=== PATIENT | female | born 1970 | race Caucasian/White ===

== ENCOUNTER 2019-06-15 14:42 | Observation (INO) | payer OTHER ==
[2019-06-15] MEDS ORDERED: SODIUM CHLORIDE 0.9% 1,000 ML IV STA (15:19)
[2019-06-15] MEDS ORDERED: PANTOPRAZOLE 40 MG/10 ML VIAL IVP STA (15:19)
[2019-06-15] MEDS ORDERED: DICYCLOMINE 10 MG CAP PO STA (15:20)
--- NOTE | 2019-06-15 15:24 | ED ---
General Adult HPI - General Chief complaint: Recheck/Abnormal Lab/Rx Stated complaint: Chest pain Time Seen by Provider: 06/15/19 14:48 Source: patient Mode of arrival: ambulatory Limitations: no limitations - History of Present Illness Initial comments: Patient is a 48-year-old female presenting to emergency by with a chief complaint of abdominal pain. Patient reports she developed sudden onset of nausea or vomiting and epigastric and right upper quadrant abdominal pain about 2 days ago. Patient reports she was evaluated at [facility] with no acute findings. Patient was discharged with antiemetics and pain control. Patient reports she developed no changes over the last 2 days however the pain has persisted. Patient reports the pain is a 7 and cramping. Patient report she was placed on a clear liquid diet. Patient reports taking Zofran once for nausea which has since resolved. She reports also discovered a UTI and she is currently treated with antibiotics. Patient denies any urinary symptoms. Patient reports her last bowel movement was one day ago. Patient reports she is currently undergone menopause in her last menstrual period was about 3 weeks ago. - Related Data Previous Rx's Medication Instructions Recorded HYDROcodone/APAP 5-325MG [Atkinson 1 - 2 tab PO Q6HR PRN #30 tab 01/01/16 5-325] Levofloxacin [Levaquin] 500 mg PO DAILY #7 tab 01/01/16 metroNIDAZOLE [Flagyl] 500 mg PO TID #21 tab 01/01/16 Allergies Allergy/AdvReac Type Severity Reaction Status Date / Time Penicillins Allergy Unknown Verified 06/15/19 14:47 Childhood varenicline tartrate AdvReac NIGHTMARES Verified 06/15/19 14:47 [From Chantix] Review of Systems ROS Statement: Those systems with pertinent positive or pertinent negative responses have been documented in the HPI. ROS Other: All systems not noted in ROS Statement are negative. Past Medical History Past Medical History: No Reported History History of Any Multi-Drug Resistant Organisms: None Reported Past Surgical History: Section, Tubal Ligation, Uterine Ablation Additional Past Surgical History / Comment(s): knee left surgical Past Anesthesia/Blood Transfusion Reactions: No Reported Reaction Past Psychological History: No Psychological Hx Reported Smoking Status: Current some day smoker Past Alcohol Use History: Rare Past Drug Use History: None Reported - Past Family History Mother Family Medical History: Cancer, COPD, Diabetes Mellitus Additional Family Medical History / Comment(s): DMII, ovarian cancer Father Family Medical History: Deep Vein Thrombosis (DVT) General Exam Limitations: no limitations General appearance: alert, in no apparent distress Head exam: Present: atraumatic, normocephalic, normal inspection Eye exam: Present: normal appearance Pupils: Present: normal accommodation ENT exam: Present: normal exam, mucous membranes moist, normal external ear exam Neck exam: Present: normal inspection, full ROM Respiratory exam: Present: normal lung sounds bilaterally Cardiovascular Exam: Present: regular rate, normal rhythm, normal heart sounds GI/Abdominal exam: Present: soft, tenderness (Diffuse abdominal tenderness mostly localized to the epigastric and right upper quadrant.), normal bowel sounds. Absent: distended, guarding, rebound Extremities exam: Present: normal inspection, full ROM Back exam: Present: normal inspection, full ROM Neurological exam: Present: alert, oriented X3 Psychiatric exam: Present: normal affect, normal mood Skin exam: Present: warm, intact, normal color Course Vital Signs 06/15/19 14:43 Temperature 97.9 F Pulse Rate 88 Respiratory 16 Rate Blood Pressure 112/79 O2 Sat by Pulse 99 Oximetry EKG Findings - EKG Comments: EKG Findings:: Normal sinus rhythm, no ST elevation, no hyper peaked T waves. Ventricular rate 82, PA interval 170, QRS duration 90, QT/QTc 410/479 Medical Decision Making - Medical Decision Making Patient is a 48-year-old female presenting to emergency Department with a chief complaint of abdominal pain nausea vomiting. Laboratory results imaging and found report obtained from [facility]. Patient was initially hyperkalemic at the hospital however I suspect this to be due to a hemolyzed blood sample. Initial lab results obtained here patient appears to be hypokalemic at 2.6. Patient given 40 mg of care. Laboratory results obtained again. EKG is negative for flattening T waves. Patient also appears to have elevated bilirubin. In the hospital there were initially suspecting a gallbladder-related issue for her symptoms. However, ultrasound and CT were negative for any acute pathology at the time. Currently patient is stable. Patient given analgesia, fluids, antiemetics and will be admitted for further medical management. Case discussed with Dr. kahn who also examined the patient and is in agreement with the treatment plan. Accepting physician is Dr. love - Lab Data Result diagrams: 06/15/19 15:38 06/15/19 15:38 Lab Results 06/15/19 06/15/19 06/15/19 Range/Units 15:38 15:38 15:38 WBC 10.3 (3.8-10.6) k/uL RBC 3.86 (3.80-5.40) m/uL Hgb 14.2 (11.4-16.0) gm/dL Hct 42.5 (34.0-46.0) % MCV 110.2 H (80.0-100.0) fL MCH 36.8 H (25.0-35.0) pg MCHC 33.5 (31.0-37.0) g/dL RDW 14.3 (11.5-15.5) % Plt Count 46 L (150-450) k/uL Neutrophils % 88 % Lymphocytes % 6 % Monocytes % 3 % Eosinophils % 1 % Basophils % 0 % Neutrophils # 9.0 H (1.3-7.7) k/uL Lymphocytes # 0.7 L (1.0-4.8) k/uL Monocytes # 0.3 (0-1.0) k/uL Eosinophils # 0.1 (0-0.7) k/uL Basophils # 0.0 (0-0.2) k/uL Manual Slide Review Performed Macrocytosis Marked A Sodium 137 (137-145) mmol/L Potassium 2.6 L* (3.5-5.1) mmol/L Chloride 102 (98-107) mmol/L Carbon Dioxide 24 (22-30) mmol/L Anion Gap 11 mmol/L BUN 21 H (7-17) mg/dL Creatinine 1.06 H (0.52-1.04) mg/dL Est GFR (CKD-EPI)AfAm 71 (>60 ml/min/1.73 sqM) Est GFR (CKD-EPI)NonAf 62 (>60 ml/min/1.73 sqM) Glucose 102 H (74-99) mg/dL Calcium 8.5 (8.4-10.2) mg/dL Magnesium (1.6-2.3) mg/dL Total Bilirubin 4.3 H (0.2-1.3) mg/dL AST 169 H (14-36) U/L ALT 52 (9-52) U/L Alkaline Phosphatase 338 H (38-126) U/L CK-MB (CK-2) <0.2 (0.0-2.4) ng/mL Total Protein 5.6 L (6.3-8.2) g/dL Albumin 2.7 L (3.5-5.0) g/dL Amylase <30 L (30-110) U/L Lipase 23 (23-300) U/L 06/15/ Range/Units 15:38 WBC (3.8-10.6) k/uL RBC (3.80-5.40) m/uL Hgb (11.4-16.0) gm/dL Hct (34.0-46.0) % MCV (80.0-100.0) fL MCH (25.0-35.0) pg MCHC (31.0-37.0) g/dL RDW (11.5-15.5) % Plt Count (150-450) k/uL Neutrophils % % Lymphocytes % % Monocytes % % Eosinophils % % Basophils % % Neutrophils # (1.3-7.7) k/uL Lymphocytes # (1.0-4.8) k/uL Monocytes # (0-1.0) k/uL Eosinophils # (0-0.7) k/uL Basophils # (0-0.2) k/uL Manual Slide Review Macrocytosis Sodium (137-145) mmol/L Potassium (3.5-5.1) mmol/L Chloride (98-107) mmol/L Carbon Dioxide (22-30) mmol/L Anion Gap mmol/L BUN (7-17) mg/dL Creatinine (0.52-1.04) mg/dL Est GFR (CKD-EPI)AfAm (>60 ml/min/1.73 sqM) Est GFR (CKD-EPI)NonAf (>60 ml/min/1.73 sqM) Glucose (74-99) mg/dL Calcium (8.4-10.2) mg/dL Magnesium 2.0 (1.6-2.3) mg/dL Total Bilirubin (0.2-1.3) mg/dL AST (14-36) U/L ALT (9-52) U/L Alkaline Phosphatase (38-126) U/L CK-MB (CK-2) (0.0-2.4) ng/mL Total Protein (6.3-8.2) g/dL Albumin (3.5-5.0) g/dL Amylase (30-110) U/L Lipase (23-300) U/L Disposition Clinical Impression: Abdominal pain, Hyperbilirubinemia Disposition: ADMITTED IP TO THIS HOSP Condition: Stable Instructions (If sedation given, give patient instructions): Abdominal Pain (ED) Additional Instructions: Patient will be admitted Is patient prescribed a controlled substance at d/c from ED?: No Referrals: Sean Mota MD [Primary Care Provider] - 1-2 days Time of Disposition: 18:24
[2019-06-15 15:51] LABS: Basophils % (A) 0 %; Eosinophils # (A) 0.1 k/uL (0-0.7); Eosinophils % (A) 1 %; HCT 42.5 % (34.0-46.0); HGB 14.2 gm/dL (11.4-16.0); Lymphocytes # (A) 0.7 k/uL (1.0-4.8); Lymphocytes % (A) 6 %; MCH 36.8 pg (25.0-35.0); MCHC 33.5 g/dL (31.0-37.0); MCV 110.2 fL (80.0-100.0); Macrocytosis Marked; Mean Platelet Volume 9.7; Monocytes # (A) 0.3 k/uL (0-1.0); Monocytes % (A) 3 %; Neutrophils % (A) 88 %; RBC 3.86 m/uL (3.80-5.40); RDW 14.3 % (11.5-15.5); WBC 10.3 k/uL (3.8-10.6)
[2019-06-15] MEDS ORDERED: KETOROLAC 30 MG/ML 1 ML VIAL IVP STA (15:51)
[2019-06-15 16:12] LABS: ALT 52 U/L (9-52); AST 169 U/L (14-36); African American GFR (CKD) 71 (>60 ml/min/1.73 sqM); Albumin 2.7 g/dL (3.5-5.0); Alkaline Phosphatase 338 U/L (38-126); Amylase <30 U/L (30-110); Anion Gap 11 mmol/L; Blood Urea Nitrogen 21 mg/dL (7-17); Calcium 8.5 mg/dL (8.4-10.2); Carbon Dioxide 24 mmol/L (22-30); Chloride 102 mmol/L (98-107); Glucose 102 mg/dL (74-99); Non-African American GFR(CKD) 62 (>60 ml/min/1.73 sqM); Sodium 137 mmol/L (137-145); Total Bilirubin 4.3 mg/dL (0.2-1.3); Total Protein 5.6 g/dL (6.3-8.2)
[2019-06-15 16:15] LABS: Potassium 2.6 mmol/L (3.5-5.1)
[2019-06-15 16:21] LABS: Platelet Count 46 k/uL (150-450)
[2019-06-15] MEDS ORDERED: POTASSIUM CHLORIDE ER 20 MEQ TAB.ER PO STA (16:32)
--- NOTE | 2019-06-15 17:15 | XR ---
EXAMINATION TYPE: XR KUB DATE OF EXAM: 06/15/2019 COMPARISON: NONE HISTORY: Abdominal pain TECHNIQUE: 2 views upright FINDINGS: There is no sign of intestinal obstruction or pneumoperitoneum. Fecal pattern is normal. Th ere are phleboliths in the pelvis. There are no pathologic calcifications over the kidneys. Lung base s are clear. There is old right lateral healed rib fracture. IMPRESSION: Nonacute abdomen.
[2019-06-15] MEDS ORDERED: HYDROmorphone 0.5 MG/0.5 ML SYRINGE IVP STA (17:26)
[2019-06-15] MEDS ORDERED: MORPHINE SULFATE 4 MG/ML SYRINGE IV PRN (18:24)
[2019-06-15] MEDS ORDERED: NALOXONE 0.4 MG/ML 1 ML VIAL IV PRN (18:24)
[2019-06-15] MEDS ORDERED: KETOROLAC 30 MG/ML 1 ML VIAL IVP PRN (18:24)
[2019-06-15] MEDS ORDERED: IBUPROFEN 400 MG TAB PO PRN (18:24)
[2019-06-15] MEDS ORDERED: traMADol 50 MG TAB PO PRN (18:24)
[2019-06-15] MEDS ORDERED: ACETAMINOPHEN TAB 325 MG TAB PO PRN (18:24)
[2019-06-15 19:02] LABS: Bilirubin, Conjugated 1.8 mg/dL (0.0-0.3); Bilirubin, Delta 1.8 mg/dL (0.0-0.2); Bilirubin,Unconjugated 0.6 mg/dL (0.0-1.1); Total Bilirubin 4.2 mg/dL (0.2-1.3)
[2019-06-15 19:17] LABS: Potassium 2.7 mmol/L (3.5-5.1)
[2019-06-15 19:22] LABS: Appearance,Urine Cloudy (Clear); Bacteria,Urine Occasional /hpf; Bilirubin,Urine 1+ (Negative); Blood,Urine Small (Negative); Color,Urine Dark Brown; Glucose,Urine (UA) Negative (Negative); Ketones,Urine Negative (Negative); Leukocyte Esterase,Urine Moderate (Negative); Nitrite,Urine Negative (Negative); PH, Urine 5.5 (5.0-8.0); Protein,Urine 1+ (Negative); RBC,Urine 14 /hpf (0-5); Specific Gravity,Urine 1.015 (1.001-1.035); Squamous Epithelial Cell,Urine 4 /hpf (0-4); WBC,Urine 57 /hpf (0-5)
[2019-06-15] MEDS: SODIUM CHLORIDE 0.9% 1,000 ML IV SCH (20:02)
[2019-06-15] MEDS: FAMOTIDINE 20 MG TAB PO SCH (21:38)
[2019-06-15] MEDS: HYDROmorphone 0.5 MG/0.5 ML SYRINGE IVP PRN (21:38)
[2019-06-15] MEDS: ALPRAZolam 0.25 MG TAB PO PRN (23:13)
[2019-06-16] MEDS: HYDROmorphone 0.5 MG/0.5 ML SYRINGE IVP PRN ×7 (00:38→21:58)
[2019-06-16] MEDS: SODIUM CHLORIDE 0.9% 1,000 ML IV SCH ×2 (04:26→15:40)
[2019-06-16] MEDS: FAMOTIDINE 20 MG TAB PO SCH ×2 (08:44→21:58)
[2019-06-16 09:29] LABS: Basophils % (A) 0 %; Eosinophils # (A) 0.1 k/uL (0-0.7); Eosinophils % (A) 1 %; HCT 38.6 % (34.0-46.0); HGB 12.6 gm/dL (11.4-16.0); Lymphocytes # (A) 0.7 k/uL (1.0-4.8); Lymphocytes % (A) 8 %; MCH 36.9 pg (25.0-35.0); MCHC 32.6 g/dL (31.0-37.0); MCV 113.1 fL (80.0-100.0); Macrocytosis Marked; Mean Platelet Volume 9.8; Monocytes # (A) 0.2 k/uL (0-1.0); Monocytes % (A) 3 %; Neutrophils # (A) 7.2 k/uL (1.3-7.7); Neutrophils % (A) 85 %; RBC 3.41 m/uL (3.80-5.40); RDW 14.2 % (11.5-15.5); WBC 8.5 k/uL (3.8-10.6)
[2019-06-16 09:43] LABS: Platelet Count 30 k/uL (150-450)
[2019-06-16 09:44] LABS: Albumin 2.4 g/dL (3.5-5.0); Calcium 7.5 mg/dL (8.4-10.2); Potassium 2.8 mmol/L (3.5-5.1); Total Bilirubin 4.3 mg/dL (0.2-1.3)
[2019-06-16] MEDS ORDERED: POTASSIUM CHLORIDE ER 20 MEQ TAB.ER PO STA (14:09)
[2019-06-16] MEDS: 0.9% NACL WITH KCL 20 MEQ/L 1,000 ML IV SCH (15:38)
[2019-06-16] MEDS: CEFEPIME 2 GM in SODIUM CHLORIDE 0.9% 100 ML IVPB SCH ×2 (15:43→21:59)
[2019-06-16] MEDS ORDERED: POTASSIUM CHLORIDE ER 20 MEQ TAB.ER PO ONE (17:00)
--- NOTE | 2019-06-16 21:45 | P.HPIM ---
History of Present Illness H&P Date: 06/16/19 Chief Complaint: Upper abdominal pain History of presenting complaint: This is a pleasant 48-year-old patient of Dr. Mota. Patient initially presented to [facility] where she is having abdominal pain in the upper abdomen for about a week. Sharp in nature it is worse with food. Goes around and goes the back. No fever no chills. She initially presented [facility] 2 days ago and was was sent home. She presented to them with worsening pain. And at some elevation in LFTs was sent down here. Patient had some relief with Tums. Has been up in the hallway here in the hospital. General surgery was consulted this morning. Patient has CDs from the hospital for ultrasound. No fever no chills. Review of systems: GEN.: None EYES: None HEENT: None NECK: None RESPIRATORY: Occasional cough CARDIOVASCULAR: None GASTROINTESTINAL: As above GENITOURINARY: None MUSCULOSKELETAL: None LYMPHATICS: None HEMATOLOGICAL: None PSYCHIATRY: None NEUROLOGICAL: None Social history: . Works as a asphalt roller person. Smoking half a pack a day for over 30 years. A lcohol occasionally. Physical examination: VITAL SIGNS: 97.9, 85, 18, 109/73, 94% room air GENERAL: 25.4, sitting up comfortable. EYES: Pupils equal. Conjunctiva normal. HEENT: External appearance of nose and ears normal, oral cavity grossly normal. NECK: JVD not raised; masses not palpable. HEART: First and second heart sounds are normal; no edema. LUNGS: Respiratory rate normal; decreased breath sounds. ABDOMEN: Soft, upper abdominal tenderness both in the epigastric and the right upper quadrant area,, liver spleen not palpable, no masses palpable. PSYCH: Alert and oriented x3; mood and affect normal. NEUROLOGICAL: Cranial nerves grossly intact; no facial asymmetry, power and sensation grossly intact. LYMPHATICS: No lymph nodes palpable in the axilla and neck INVESTIGATIONS, reviewed in the clinical context: White count 10.3 hemoglobin 14.2 potassium 2.6. 21 crit 1.06 total bilirubin 4.3 AST 169 ALT 52 alkaline phosphatase 338 Assessment: -This is a patient has 1 week of increasing upper abdominal pain with some nausea. No fever no chills. Patient has some elevation of LFTs some alkaline phosphatase and bilirubin. Patient may have underlying symptomatic gallstones. There is no obvious evidence of any fever or white count. But empirically will start the patient on antibiotics. Associated peptic ulcer disease needs to be considered -Chronic nicotine dependence patient cigarette smoker -Hyperbilirubinemia -Severe hypokalemia -Clinical dehydration with elevated BUN/creatinine improving with IV hydration Plan: Patient started and IV fluids and potassium was being replaced. General surgery was consulted. Patient has ultrasound does struggle the hospital. Lovenox for DVT prophylaxis. Pain control IV Dilaudid ordered. Care was discussed with the patient. Questions were answered. Past Medical History Past Medical History: No Reported History History of Any Multi-Drug Resistant Organisms: None Reported Past Surgical History: Appendectomy, Section, Tubal Ligation, Uterine Ablation Additional Past Surgical History / Comment(s): knee left surgical Past Anesthesia/Blood Transfusion Reactions: No Reported Reaction Past Psychological History: No Psychological Hx Reported Additional Psychological History / Comment(s): . Tobacco smoker. 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 No animal exposures Smoking Status: Current some day smoker Past Alcohol Use History: Rare Past Drug Use History: None Reported - Past Family History Mother Family Medical History: Cancer, COPD, Diabetes Mellitus Additional Family Medical History / Comment(s): DMII, ovarian cancer Father Family Medical History: Deep Vein Thrombosis (DVT) Medications and Allergies Home Medications Medication Instructions Recorded Confirmed Type Naproxen [Naprosyn] 500 mg PO Q12HR PRN 06/15/19 06/15/19 History Nitrofurantoin Monohyd/M-Cryst 100 mg PO Q12HR 06/15/19 06/15/19 History [Macrobid] Ondansetron Odt [Zofran Odt] 4 mg PO TID PRN 06/15/19 06/15/19 History Allergies Allergy/AdvReac Type Severity Reaction Status Date / Time Penicillins Allergy Unknown Verified 06/15/19 18:36 Childhood varenicline tartrate AdvReac NIGHTMARES Verified 06/15/19 18:36 [From Chantix] Physical Exam Vitals: Vital Signs Temp Pulse Pulse Resp BP BP Pulse Ox 06/16/19 05:46 97.7 F 85 18 109/73 94 L 06/15/19 22:48 97.5 F L 86 18 106/69 99 06/15/19 20:23 97.8 F 84 15 115/86 98 06/15/19 18:57 97.6 F 82 18 113/83 98 06/15/19 14:43 97.9 F 88 16 112/79 99 Intake and Output 06/15/19 06/16/19 06/16/19 22:59 06:59 14:59 Intake Total 450 240 Balance 450 240 Intake: Oral 450 240 Other: Voiding Method Toilet Toilet # Voids 2 Results CBC & Chem 7: 06/16/19 08:40 06/16/19 08:40 Labs: Abnormal Lab Results - Last 24 Hours (Table) 06/15/19 06/15/19 06/15/19 Range/Units 15:38 15:38 18:15 RBC (3.80-5.40) m/uL MCV 110.2 H (80.0-100.0) fL MCH 36.8 H (25.0-35.0) pg Plt Count 46 L (150-450) k/uL Neutrophils # 9.0 H (1.3-7.7) k/uL Lymphocytes # 0.7 L (1.0-4.8) k/uL Macrocytosis Marked A Potassium 2.6 L* 2.7 L* (3.5-5.1) mmol/L BUN 21 H (7-17) mg/dL Creatinine 1.06 H (0.52-1.04) mg/dL Glucose 102 H (74-99) mg/dL Calcium (8.4-10.2) mg/dL Total Bilirubin 4.3 H 4.2 H (0.2-1.3) mg/dL Conjugated Bilirubin 1.8 H (0.0-0.3) mg/dL Delta Bilirubin 1.8 H (0.0-0.2) mg/dL AST 169 H (14-36) U/L Alkaline Phosphatase 338 H (38-126) U/L Total Protein 5.6 L (6.3-8.2) g/dL Albumin 2.7 L (3.5-5.0) g/dL Amylase <30 L (30-110) U/L Urine Appearance (Clear) Urine Protein (Negative) Urine Blood (Negative) Urine Bilirubin (Negative) Ur Leukocyte Esterase (Negative) Urine RBC (0-5) /hpf Urine WBC (0-5) /hpf Urine Bacteria (None) /hpf 06/15/19 06/16/19 06/16/19 Range/Units 19:00 08:40 08:40 RBC 3.41 L (3.80-5.40) m/uL MCV 113.1 H (80.0-100.0) fL MCH 36.9 H (25.0-35.0) pg Plt Count 30 L (150-450) k/uL Neutrophils # (1.3-7.7) k/uL Lymphocytes # 0.7 L (1.0-4.8) k/uL Macrocytosis Marked A Potassium 2.8 L (3.5-5.1) mmol/L BUN (7-17) mg/dL Creatinine (0.52-1.04) mg/dL Glucose (74-99) mg/dL Calcium 7.5 L (8.4-10.2) mg/dL Total Bilirubin 4.3 H (0.2-1.3) mg/dL Conjugated Bilirubin (0.0-0.3) mg/dL Delta Bilirubin (0.0-0.2) mg/dL AST 144 H (14-36) U/L Alkaline Phosphatase 330 H (38-126) U/L Total Protein 5.0 L (6.3-8.2) g/dL Albumin 2.4 L (3.5-5.0) g/dL Amylase (30-110) U/L Urine Appearance Cloudy H (Clear) Urine Protein 1+ H (Negative) Urine Blood Small H (Negative) Urine Bilirubin 1+ H (Negative) Ur Leukocyte Esterase Moderate H (Negative) Urine RBC 14 H (0-5) /hpf Urine WBC 57 H (0-5) /hpf Urine Bacteria Occasional H (None) /hpf Thrombosis Risk Factor Assmnt - Choose All That Apply Any of the Below Risk Factors Present?: Yes Each Factor Represents 1 point: Age 41-60 years Thrombosis Risk Factor Assessment Total Risk Factor Score: 1 Thrombosis Risk Factor Assessment Level: Low Risk
[2019-06-16] MEDS: ALPRAZolam 0.25 MG TAB PO PRN (21:58)
[2019-06-16] MEDS: NICOTINE 14MG/24HR PATCH TRANSDERM SCH (21:59)
[2019-06-16] MEDS ORDERED: ENOXAPARIN 40 MG/0.4 ML SYRINGE SQ SCH (22:00)
[2019-06-17] MEDS: 0.9% NACL WITH KCL 20 MEQ/L 1,000 ML IV SCH ×3 (00:12→19:50)
[2019-06-17] MEDS: HYDROmorphone 0.5 MG/0.5 ML SYRINGE IVP PRN ×4 (03:40→23:54)
[2019-06-17] MEDS: FAMOTIDINE 20 MG TAB PO SCH ×2 (08:05→19:50)
[2019-06-17] MEDS: CEFEPIME 2 GM in SODIUM CHLORIDE 0.9% 100 ML IVPB SCH ×2 (08:05→19:50)
--- NOTE | 2019-06-17 09:34 | US ---
EXAMINATION TYPE: US abdomen limited DATE OF EXAM: 06/17/2019 COMPARISON: CT 12/30/2015 and 06/13/2019 from outside institution CLINICAL HISTORY: Gallbladder. abd pain EXAM MEASUREMENTS: Liver Length: 23.1 cm Gallbladder Wall: 0.2 cm CBD: 0.5 cm Right Kidney: 11.9 x 5.9 x 4.9 cm Pancreas: portion seen appears wnl Liver: grossly enlarged, echogenicity of liver presents as hypoechoic within left lobe and medial ri ght, while remaining right portion has more normal appearing echogenicity Gallbladder: wnl Evidence for sonographic Gimenez's sign: no CBD: wnl Right Kidney: wnl incidental right pleural effusion seen IMPRESSION: Limited abdomen ultrasound. Right pleural effusion is small and incidental. Hepatomegaly. There may be underlying hepatocellular disease, hepatic steatosis, hypoechoic abnormality seen withi n the liver left lobe is indeterminate.
[2019-06-17 11:27] LABS: ALT 58 U/L (9-52); AST 142 U/L (14-36); African American GFR (CKD) >90 (>60 ml/min/1.73 sqM); Albumin 2.6 g/dL (3.5-5.0); Alkaline Phosphatase 403 U/L (38-126); Anion Gap 9 mmol/L; Blood Urea Nitrogen 15 mg/dL (7-17); Calcium 7.7 mg/dL (8.4-10.2); Carbon Dioxide 21 mmol/L (22-30); Chloride 109 mmol/L (98-107); Glucose 77 mg/dL (74-99); Non-African American GFR(CKD) 88 (>60 ml/min/1.73 sqM); Sodium 139 mmol/L (137-145); Total Bilirubin 5.3 mg/dL (0.2-1.3); Total Protein 5.7 g/dL (6.3-8.2)
--- NOTE | 2019-06-17 15:41 | P.GSCN ---
History of Present Illness Consult date: 06/17/19 Reason for Consult: abdominal pain Requesting physician: Bernabe Diallo History of present illness: CHIEF COMPLAINT: Abdominal pain HISTORY OF PRESENT ILLNESS: 48 year old female who presented to the ER with a chief complaint of abdominal pain. Patient reports she began having abdominal pain about a week ago that has increased in severity. She reports the pain is in the epigastric region and right upper quadrant. The pain radiates to her back also. She states she has been having pain like this on and off for about a year, but this is the worst it has been. She also complains of heartburn for about a year. She reports intolerable to fatty or greasy foods as it tends to cause her abdominal discomfort. She denies nausea or vomiting. Denies diarrhea or constipation. Patient denies previous EGD. She reports drinking hard liquor 2-3 times a week and having around 3 drinks on each occasion. PAST MEDICAL HISTORY: See list. PAST SURGICAL HISTORY: See list. SOCIAL HISTORY: No illicit drug use. ETOH use 2-3x/week. REVIEW OF SYSTEMS: CONSTITUTIONAL: Denies fever or chills. HEENT: Denies blurred vision, vision changes, or eye pain. Denies hemoptysis CARDIOVASCULAR: Denies chest pain or pressure. RESPIRATORY: No shortness of breath. GASTROINTESTINAL: Refer to HPI for pertinent findings HEMATOLOGIC: Denies bleeding disorders. GENITOURINARY: Denies any blood in urine. SKIN: Denies pruitis. Denies rash. PHYSICAL EXAM: VITAL SIGNS: Reviewed. GENERAL: Well-developed in no acute distress. HEENT: No sclera icterus. Extraocular movements grossly intact. Moist buccal mucosa. Head is atraumatic, normocephalic. ABDOMEN: Soft. Nondistended. Tenderness with palpation to epigastric region and right upper quadrant. NEUROLOGIC: Alert and oriented. Cranial nerves II through XII grossly intact. LABORATORY DATA: Most recent laboratory data reveals white count 8.5. Hemoglobin 12.6. Platelet count 30. Total bilirubin 5.3. AST 142. ALT 58. Alkaline phosphatase 403. IMAGIN. CT abdomen and pelvis completed outside facility reveals hepatomegaly. Geographic heterogeneity to the hepatic parenchyma consistent with hepatic steatosis. Spleen is mildly prominent. No evidence of gastroesophageal varices. Bowel loops are normal in course and caliber. Appendix is absent by surgical history. 2. Abdominal ultrasound: Hepatomegaly. There may be underlying hepatocellular disease, hepatic stenosis. Hypoechoic abnormality seen within the left liver lobe is indeterminate. Gallbladder appears within normal limits., Bile duct measuring 0.5 cm. Gallbladder wall 0.2 cm. ASSESSMENT: 1. Abdominal pain 2. Hepatomegaly 3. Hyperbilirubinemia 4. Transaminitis 5. Thrombocytopenia 6. Alcohol use 3x/weekly PLAN: 1. Abdominal US without gallbladder abnormalities. However patient does have clinical symptoms of gallbladder dyskinesia over the past year. Will obtain HIDA scan. 2. Consult GI for further evaluation of abnormal LFTs. Can not exclude passage of gallstones. Can not exclude abnormalities are secondary to ETOH use. Hepatitis panel has been ordered. 3. Discontinue Lovenox as platelet count is 30,000 this AM. Patient is ambulating independently. Nurse practitioner note has been reviewed by physician. Signing provider agrees with the documented findings, assessment, and plan of care. Past Medical History Past Medical History: No Reported History History of Any Multi-Drug Resistant Organisms: None Reported Past Surgical History: Appendectomy, Section, Tubal Ligation, Uterine Ablation Additional Past Surgical History / Comment(s): knee left surgical Past Anesthesia/Blood Transfusion Reactions: No Reported Reaction Past Psychological History: No Psychological Hx Reported Additional Psychological History / Comment(s): . Tobacco smoker. 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 No animal exposures Smoking Status: Current some day smoker Past Alcohol Use History: Rare Past Drug Use History: None Reported - Past Family History Mother Family Medical History: Cancer, COPD, Diabetes Mellitus Additional Family Medical History / Comment(s): DMII, ovarian cancer Father Family Medical History: Deep Vein Thrombosis (DVT) Medications and Allergies Home Medications Medication Instructions Recorded Confirmed Type Naproxen [Naprosyn] 500 mg PO Q12HR PRN 06/15/19 06/15/19 History Nitrofurantoin Monohyd/M-Cryst 100 mg PO Q12HR 06/15/19 06/15/19 History [Macrobid] Ondansetron Odt [Zofran Odt] 4 mg PO TID PRN 06/15/19 06/15/19 History Allergies Allergy/AdvReac Type Severity Reaction Status Date / Time Penicillins Allergy Unknown Verified 06/15/19 18:36 Childhood varenicline tartrate AdvReac NIGHTMARES Verified 06/15/19 18:36 [From Chantix] Surgical - Exam Vital Signs Temp Pulse Resp BP Pulse Ox 97.9 F 88 16 112/79 99 06/15/19 14:43 06/15/19 14:43 06/15/19 14:43 06/15/19 14:43 06/15/19 14:43 Results - Labs 06/16/19 08:40 06/17/19 10:37 Abnormal Lab Results - Last 24 Hours (Table) 06/17/19 Range/Units 10:37 Chloride 109 H (98-107) mmol/L Carbon Dioxide 21 L (22-30) mmol/L Calcium 7.7 L (8.4-10.2) mg/dL Total Bilirubin 5.3 H (0.2-1.3) mg/dL AST 142 H (14-36) U/L ALT 58 H (9-52) U/L Alkaline Phosphatase 403 H (38-126) U/L Total Protein 5.7 L (6.3-8.2) g/dL Albumin 2.6 L (3.5-5.0) g/dL Diabetes panel 06/16/19 06/17/19 Range/Units 23:17 10:37 Sodium 139 (137-145) mmol/L Potassium 3.7 4.0 (3.5-5.1) mmol/L Chloride 109 H (98-107) mmol/L Carbon Dioxide 21 L (22-30) mmol/L BUN 15 (7-17) mg/dL Creatinine 0.79 (0.52-1.04) mg/dL Glucose 77 (74-99) mg/dL Calcium 7.7 L (8.4-10.2) mg/dL AST 142 H (14-36) U/L ALT 58 H (9-52) U/L Alkaline Phosphatase 403 H (38-126) U/L Total Protein 5.7 L (6.3-8.2) g/dL Albumin 2.6 L (3.5-5.0) g/dL Calcium panel 06/17/19 Range/Units 10:37 Calcium 7.7 L (8.4-10.2) mg/dL Albumin 2.6 L (3.5-5.0) g/dL Pituitary panel 06/16/19 06/17/19 Range/Units 23:17 10:37 Sodium 139 (137-145) mmol/L Potassium 3.7 4.0 (3.5-5.1) mmol/L Chloride 109 H (98-107) mmol/L Carbon Dioxide 21 L (22-30) mmol/L BUN 15 (7-17) mg/dL Creatinine 0.79 (0.52-1.04) mg/dL Glucose 77 (74-99) mg/dL Calcium 7.7 L (8.4-10.2) mg/dL Adrenal panel 06/16/19 06/17/19 Range/Units 23:17 10:37 Sodium 139 (137-145) mmol/L Potassium 3.7 4.0 (3.5-5.1) mmol/L Chloride 109 H (98-107) mmol/L Carbon Dioxide 21 L (22-30) mmol/L BUN 15 (7-17) mg/dL Creatinine 0.79 (0.52-1.04) mg/dL Glucose 77 (74-99) mg/dL Calcium 7.7 L (8.4-10.2) mg/dL Total Bilirubin 5.3 H (0.2-1.3) mg/dL AST 142 H (14-36) U/L ALT 58 H (9-52) U/L Alkaline Phosphatase 403 H (38-126) U/L Total Protein 5.7 L (6.3-8.2) g/dL Albumin 2.6 L (3.5-5.0) g/dL
--- NOTE | 2019-06-17 16:21 | NM ---
EXAMINATION TYPE: NM hepatobiliary wo EF DATE OF EXAM: 06/17/2019 COMPARISON: Ultrasound abdomen same date HISTORY: Abdominal pain TECHNIQUE: After the intravenous administration of 4.82 mCi Tc 99m Mebrofenin hepatobiliary scintigra phy is performed. Immediate images post injection. FINDINGS: The liver is enlarged. Small bowel activity is detected at 10 to 15 minutes. Gallbladder activity is detected on delayed images at 3 hours. IMPRESSION: Findings could be due to chronic cholecystitis. Hepatomegaly.
[2019-06-17] MEDS: ALPRAZolam 0.25 MG TAB PO PRN (16:50)
[2019-06-17 18:03] LABS: Hepatitis A Antibody IgM Non-Reactive (Non-Reactive); Hepatitis B Core IgM Non-Reactive (Non-Reactive); Hepatitis B Surface Antigen Non-Reactive (Non-Reactive); Hepatitis C IgG Antibody Non-Reactive (Non-Reactive)
[2019-06-17] MEDS: NICOTINE 14MG/24HR PATCH TRANSDERM SCH (19:57)
[2019-06-17] MEDS ORDERED: LIDOCAINE 1% 20 ML VIAL (10MG/ML) FOR IV START INTRADERMA PRN (20:37)
[2019-06-17] MEDS ORDERED: DEXAMETHASONE SOD PHOSPHATE 10 MG/ML 1 ML VIAL IV ONE (20:37)
[2019-06-17] MEDS ORDERED: ONDANSETRON 4 MG/2 ML VIAL IVP ONE (20:37)
[2019-06-17] MEDS ORDERED: IOPAMIDOL CONTRAST (ORAL USE) VIAL PO PRN (23:43)
--- NOTE | 2019-06-17 23:43 | P.PN ---
Progress Note - Text Progress Note Date: 06/17/19 Chief Complaint: Upper abdominal pain History of presenting complaint: This is a pleasant 48-year-old patient of Dr. Mota. [facility] having abdominal pain in the upper abdomen for about a week. Sharp in nature it is worse with food. Goes around and goes the back. No fever no chills. She initially presented [facility] 2 days ago and was was sent home. She presented to them with worsening pain. And at some elevation in LFTs was sent down here. Patient had some relief with Tums. Has been up in the hallway here in the hospital. General surgery was consulted this morning. Patient has CDs from the hospital for ultrasound. No fever no chills. Admitted for suspected choledocholithiasis/chronic cholecystitis Today-sitting up on the bed. Surgery ordered HIDA scan. Remains to be tender in the upper abdomen. No Nausea or vomiting. No fever no chills. Review of systems: Was done for constitutional, cardiovascular, GI, pulmonary. relevant finding as above Active Medications Acetaminophen (Tylenol Tab) 650 mg PO Q6HR PRN PRN Reason: Mild Pain or Fever > 100.5 Alprazolam (Xanax) 0.25 mg PO Q6HR PRN PRN Reason: Anxiety Last Admin: 06/17/19 16:50 Dose: 0.25 mg Documented by: Famotidine (Pepcid) 20 mg PO BID HERNAN Last Admin: 06/17/19 19:50 Dose: 20 mg Documented by: Hydromorphone HCl (Dilaudid) 0.5 mg IVP Q3HR PRN PRN Reason: Moderate Pain Last Admin: 06/17/19 18:30 Dose: 0.5 mg Documented by: Cefepime HCl 2 gm/ Sodium (Chloride) 100 mls @ 200 mls/hr IVPB Q12HR HERNAN Last Admin: 06/17/19 19:50 Dose: 200 mls/hr Documented by: Potassium Chloride/Sodium Chloride (Ns-Kcl 20 Meq/L Iv Solution) 1,000 mls @ 100 mls/hr IV .Q10H HERNAN Last Admin: 06/17/19 19:50 Dose: 100 mls/hr Documented by: Lactated Ringer's (Lactated Ringers) 1,000 mls @ 20 mls/hr IV .Q24H HERNAN Ibuprofen (Motrin) 400 mg PO Q6HR PRN PRN Reason: Mild Pain or Fever > 100.5 Ketorolac Tromethamine (Toradol) 30 mg IVP Q6HR PRN PRN Reason: Moderate Pain Stop: 06/20/19 18:25 Lidocaine HCl (.Xylocaine 1% Inj (10mg/Ml) For Iv Start) 0.1 ml INTRADERMA PER PROTOCOL PRN PRN Reason: IV Start Morphine Sulfate (Morphine Sulfate (Inj)) 4 mg IV Q4HR PRN PRN Reason: Severe Pain Naloxone HCl (Narcan) 0.2 mg IV Q2M PRN PRN Reason: Opioid Reversal Nicotine (Habitrol 14mg/24hr Patch) 1 patch TRANSDERM DAILY@2100 HERNAN Last Admin: 06/17/19 19:57 Dose: Not Given Documented by: Tramadol HCl (Ultram) 50 mg PO Q6H PRN PRN Reason: Moderate Pain Physical examination: VITAL SIGNS: 98.1, 75, 20, 137/92, 95% room air GENERAL: Sitting up in bed, not in distress. EYES: Pupils equal. Conjunctiva normal. HEENT: External appearance of nose and ears normal, oral cavity grossly normal. NECK: JVD not raised; masses not palpable. HEART: First and second heart sounds are normal; no edema. LUNGS: Respiratory rate normal; decreased breath sounds. ABDOMEN: Soft, upper abdominal tenderness both in the epigastric and the right upper quadrant area,, liver spleen not palpable, no masses palpable. PSYCH: Alert and oriented x3; mood and affect normal. INVESTIGATIONS, reviewed in the clinical context: Potassium 4 creatinine 0.79 total bilirubin 5.3 AST 142 ALT 58 alkaline phosphatase 403 Abdominal ultrasound-liver grossly enlarged, gallbladder within normal limits Previous testing White count 10.3 hemoglobin 14.2 potassium 2.6. 21 crit 1.06 total bilirubin 4.3 AST 169 ALT 52 alkaline phosphatase 338 Assessment: -This is a patient has 1 week of increasing upper abdominal pain with some nausea. No fever no chills. Patient has some elevation of LFTs some alkaline phosphatase and bilirubin. No gallstones reportable. There is no obvious evidence of any fever or white count. But empirically will start the patient on antibiotics. Associated peptic ulcer disease needs to be considered -Chronic nicotine dependence patient cigarette smoker -Hyperbilirubinemia -Severe hypokalemia, corrected -Clinical dehydration with elevated BUN/creatinine improving with IV hydration Plan: We will do a chest x-ray. We'll also do a computed tomography scan of the chest abdomen and pelvis, given the reported pleural effusion on the ultrasound.
[2019-06-18] MEDS: ALPRAZolam 0.25 MG TAB PO PRN ×2 (02:48→20:03)
[2019-06-18] MEDS: HYDROmorphone 0.5 MG/0.5 ML SYRINGE IVP PRN ×3 (05:14→20:03)
[2019-06-18] MEDS: 0.9% NACL WITH KCL 20 MEQ/L 1,000 ML IV SCH ×2 (05:16→16:16)
[2019-06-18] MEDS: FAMOTIDINE 20 MG TAB PO SCH ×2 (06:46→20:04)
[2019-06-18] MEDS: LACTATED RINGERS 1,000 ML IV SCH ×2 (07:20→23:16)
--- NOTE | 2019-06-18 07:20 | P.CONS ---
History of Present Illness - Reason for Consult Consult date: 06/17/19 Elevated liver enzymes Requesting physician: Bernabe Diallo - Chief Complaint Abdominal pain - History of Present Illness 48-year-old female who was transferred to [facility] due to abdominal pain and elevated liver enzymes. The patient initially presented to outside hospital with complaints of abdominal pain. She reports that the abdominal pain is improved and over the past few months but has been worse over the past week. She reports the pain is in the epigastric region and worse in the right upper quadrant of her abdomen. Pain is described as sharp and constant in nature. She believes that food makes the pain worse. The patient had evaluation significant for elevated liver enzymes with imaging including CT of the abdomen significant for hepatomegaly, steatosis, a prominent spleen and prior appendectomy and ultrasound significant for hepatomegaly, steatosis with normal-appearing bile duct and gallbladder at the outside facility before transfer. On questioning the patient currently reports drinking alcohol only 2- 3 times per week but when pressed further she does report that she previously had significant alcohol use but is vague about the duration and amount that she was consuming at that time. Laboratory evaluation on presentation significant for total bilirubin 5.3, alkaline phosphatase 403, AST 142 and ALTs 58 with negative viral hepatitis testing, WBC 8.5, hemoglobin 12.4 and platelet count of 30,000. Review of Systems REVIEW OF SYSTEMS: CONSTITUTIONAL: Denies any fevers, chills, weight change or fatigue. CARDIOVASCULAR: Denies any chest pain, palpitations high or low blood pressures RESPIRATORY: Denies any shortness of breath, hemoptysis or cough. GENITOURINARY: No dysuria or hematuria. MUSCULOSKELETAL: No weakness reported. SKIN: Denies any new rashes or lesions, jaundice or pallor. PSYCHIATRIC: Denies any depression or anxiety. NEUROLOGY: Denies headache, denies any new focal deficits. EARS/NOSE/THROAT: No recent hearing change, congestion, nasal discharge or sore throat. EYES: No pain in eyes, discharge or change in vision. GASTROINTESTINAL: As per HPI. Past Medical History Past Medical History: No Reported History History of Any Multi-Drug Resistant Organisms: None Reported Past Surgical History: Appendectomy, Section, Tubal Ligation, Uterine Ablation Additional Past Surgical History / Comment(s): knee left surgical Past Anesthesia/Blood Transfusion Reactions: No Reported Reaction Past Psychological History: No Psychological Hx Reported Additional Psychological History / Comment(s): . Tobacco smoker. 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 No animal exposures Smoking Status: Current some day smoker Past Alcohol Use History: Rare Past Drug Use History: None Reported - Past Family History Mother Family Medical History: Cancer, COPD, Diabetes Mellitus Additional Family Medical History / Comment(s): DMII, ovarian cancer Father Family Medical History: Deep Vein Thrombosis (DVT) Medications and Allergies Home Medications Medication Instructions Recorded Confirmed Type Naproxen [Naprosyn] 500 mg PO Q12HR PRN 06/15/19 06/15/19 History Nitrofurantoin Monohyd/M-Cryst 100 mg PO Q12HR 06/15/19 06/15/19 History [Macrobid] Ondansetron Odt [Zofran Odt] 4 mg PO TID PRN 06/15/19 06/15/19 History Allergies Allergy/AdvReac Type Severity Reaction Status Date / Time Penicillins Allergy Unknown Verified 06/15/19 18:36 Childhood varenicline tartrate AdvReac NIGHTMARES Verified 06/15/19 18:36 [From Chantix] Physical Exam Vitals: Vital Signs Temp Pulse Resp BP Pulse Ox 06/17/19 05:15 98.1 F 75 20 137/92 95 06/16/19 21:10 98.0 F 69 20 129/84 97 Intake and Output 06/17/19 06/17/19 06/17/19 06:59 14:59 22:59 Other: # Voids 2 1 On physical examination, patient appears comfortable in no apparent distress. HEAD: Normocephalic, atraumatic. EYES: Mild scleral icterus. No conjunctival injection. MOUTH: No lesions, tongue midline. NECK: Trachea midline, no gross abnormalities. CHEST: Clear to auscultation with no wheezing or rhonchi appreciated. HEART: Regular rate and rhythm. ABDOMEN: Soft, obese. Bowel sounds are positive. No organomegaly. No guarding or rigidity. EXTREMITIES: No pedal edema. SKIN: No rashes, mild jaundice. NEUROLOGIC: Alert and oriented x3, no asterixis. No focal deficits. Results CBC & Chem 7: 06/16/19 08:40 06/17/19 10:37 Labs: Abnormal Lab Results - Last 24 Hours (Table) 06/17/19 Range/Units 10:37 Chloride 109 H (98-107) mmol/L Carbon Dioxide 21 L (22-30) mmol/L Calcium 7.7 L (8.4-10.2) mg/dL Total Bilirubin 5.3 H (0.2-1.3) mg/dL AST 142 H (14-36) U/L ALT 58 H (9-52) U/L Alkaline Phosphatase 403 H (38-126) U/L Total Protein 5.7 L (6.3-8.2) g/dL Albumin 2.6 L (3.5-5.0) g/dL CT scan - abdomen: report reviewed (Computed tomography scan performed at outside hospital with findings of hepatic steatosis, hepatomegaly, splenomegaly and other findings.) Assessment and Plan (1) Elevated liver enzymes Narrative/Plan: 48-year-old female presented to the hospital as a transfer with complaints of abdominal pain and elevated liver enzymes. Liver enzymes are elevated in both a cholestatic and hepatocellular pattern of unknown etiology. Patient reports alcohol consumption of only to 3 times per week, however on further questioning does report a prior history of significant alcohol use what is vague about the amount and duration she was consuming at that time. Given findings of steatosis on imaging, splenomegaly, thrombocytopenia, AST: ALTs in a 2:1 at this time suspicion is for alcoholic liver disease and possible cirrhosis. Plan is for further evaluation with MRCP to rule out hepatobiliary pathology of the elevated liver enzymes. Differential also includes drug-induced liver injury, with acute viral hepatitis testing ruled out with a negative lab workup. Current Visit: Yes Status: Acute Code(s): R74.8 - ABNORMAL LEVELS OF OTHER SERUM ENZYMES SNOMED Code(s): 044634598 (2) Abdominal pain Current Visit: Yes Status: Acute Code(s): R10.9 - UNSPECIFIED ABDOMINAL PAIN SNOMED Code(s): 20655042 (3) Hyperbilirubinemia Current Visit: Yes Status: Acute Code(s): E80.6 - OTHER DISORDERS OF BILIRUBIN METABOLISM SNOMED Code(s): 78793994 Plan: Supportive care Nothing by mouth for now Continue to follow CBC, CMP and INR HIDA scan in process MRCP ordered and pending Appreciate recommendations from surgical service No plans for ERCP at this time while evaluation is in process Case discussed with the patient lying who agrees with the current medical plan Thank you for allowing us to participate in the care of this patient we will continue to follow
[2019-06-18] MEDS ORDERED: LORazepam 2 MG/ML INJ IV STA ×2 (08:00→10:24)
[2019-06-18] MEDS: CEFEPIME 2 GM in SODIUM CHLORIDE 0.9% 100 ML IVPB SCH ×2 (09:44→20:03)
--- NOTE | 2019-06-18 10:21 | XR ---
EXAMINATION TYPE: XR chest 2V DATE OF EXAM: 06/18/2019 COMPARISON: Prior chest x-ray 06/13/2019 from outside institution HISTORY: TECHNIQUE: Frontal and lateral views of the chest are obtained. FINDINGS: Interstitium is increased. No pneumothorax. There is some blunting the costophrenic angle suggesting small effusions. Cardiac mediastinal silhouette, pulmonary vascularity and josh are within normal limits. IMPRESSION: There may be a component of interstitial edema, small pleural effusions.
--- NOTE | 2019-06-18 12:22 | NM ---
EXAMINATION TYPE: NM hepatobiliary w CCK DATE OF EXAM: 06/18/2019 COMPARISON: Prior exam 06/17/2019 HISTORY: Abdominal pain TECHNIQUE: After the intravenous administration of 5 mCi Tc 99m Mebrofenin hepatobiliary scintigraphy is performed. Immediate images post injection. FINDINGS: There is satisfactory initial accumulation of tracer by the liver. The liver appears enlarged. The ga llbladder is visualized within 18 minutes. The small bowel activity is noted within 18 minutes. At one hour CCK was administered, patient was injected with 1.3 mcg of Kinevac, and gallbladder ejection fraction is calculated at 37 %, in the normal range. Therefore there is no scintigraphic evidence o f cystic or common bile duct obstruction to suggest acute cholecystitis or gallbladder dyskinesia. IMPRESSION: Hepatomegaly
[2019-06-18] MEDS ORDERED: IOPAMIDOL CONTRAST (ORAL USE) VIAL PO PRN (12:33)
[2019-06-18 13:18] LABS: ALT 45 U/L (9-52); AST 84 U/L (14-36); African American GFR (CKD) >90 (>60 ml/min/1.73 sqM); Albumin 2.5 g/dL (3.5-5.0); Alkaline Phosphatase 331 U/L (38-126); Anion Gap 9 mmol/L; Blood Urea Nitrogen 12 mg/dL (7-17); Calcium 7.8 mg/dL (8.4-10.2); Carbon Dioxide 19 mmol/L (22-30); Chloride 108 mmol/L (98-107); Glucose 92 mg/dL (74-99); Non-African American GFR(CKD) >90 (>60 ml/min/1.73 sqM); Potassium 3.8 mmol/L (3.5-5.1); Sodium 136 mmol/L (137-145); Total Bilirubin 4.3 mg/dL (0.2-1.3); Total Protein 5.6 g/dL (6.3-8.2)
[2019-06-18 13:19] LABS: Basophils # (A) 0.1 k/uL (0-0.2); Basophils % (A) 1 %; Eosinophils # (A) 0.1 k/uL (0-0.7); Eosinophils % (A) 1 %; HGB 13.2 gm/dL (11.4-16.0); Lymphocytes # (A) 0.8 k/uL (1.0-4.8); Lymphocytes % (A) 9 %; MCH 36.1 pg (25.0-35.0); MCHC 32.2 g/dL (31.0-37.0); MCV 112.3 fL (80.0-100.0); Macrocytosis Marked; Mean Platelet Volume 9.2; Monocytes # (A) 0.4 k/uL (0-1.0); Monocytes % (A) 5 %; Neutrophils # (A) 7.3 k/uL (1.3-7.7); Neutrophils % (A) 82 %; RBC 3.65 m/uL (3.80-5.40); RDW 14.6 % (11.5-15.5)
[2019-06-18 13:23] LABS: Platelet Count 51 k/uL (150-450)
--- NOTE | 2019-06-18 15:34 | P.PN ---
Subjective Progress Note Date: 06/18/19 CHIEF COMPLAINT: Abdominal pain HISTORY OF PRESENT ILLNESS: Patient examined at the bedside with Dr. Sarmiento. Patient reports her abdominal pain is improving. HIDA scan completed this morning reveals ejection fraction of 37% with no evidence of cystic or common bile duct obstruction to suggest acute cholecystitis or gallbladder dyskinesia. Total bilirubin 4.3 today. AST 84. ALT 45. Alkaline phosphatase 331. PHYSICAL EXAM: VITAL SIGNS: Reviewed. GENERAL: Well-developed in no acute distress. HEENT: No sclera icterus. Extraocular movements grossly intact. Moist buccal mucosa. Head is atraumatic, normocephalic. ABDOMEN: Soft. Nondistended. Mild tenderness with palpation to epigastric region and right upper quadrant. NEUROLOGIC: Alert and oriented. Cranial nerves II through XII grossly intact. ASSESSMENT: 1. Abdominal pain 2. Hepatomegaly 3. Hyperbilirubinemia 4. Transaminitis 5. Thrombocytopenia 6. Alcohol use 3x/weekly PLAN: US and HIDA scan both without gallbladder abnormalities No surgical intervention recommended at this time GI following. MRCP ordered. Await results Alcohol abstinence discussed with patient. Nurse practitioner note has been reviewed by physician. Signing provider agrees with the documented findings, assessment, and plan of care. Objective - Vital Signs Vital signs: Vital Signs Temp 98.9 F 06/18/19 15:00 Pulse 69 06/18/19 15:00 Resp 16 06/18/19 15:00 BP 137/82 06/18/19 15:00 Pulse Ox 96 06/18/19 15:00 Intake & Output 06/17/19 06/18/19 06/18/19 18:59 06:59 18:59 Intake Total 800 Balance 800 Intake: IV 800 0.9% NaCl with KCl 20 Meq 800 /l 1,000 ml @ 100 mls/hr IV .Q10H HERNAN Rx#: [id number] Other: Voiding Method Toilet # Voids 1 1 - Labs CBC & Chem 7: 06/18/19 12:49 06/18/19 12:49 Labs: Abnormal Lab Results - Last 24 Hours (Table) 06/18/19 06/18/19 Range/Units 12:49 12:49 RBC 3.65 L (3.80-5.40) m/uL MCV 112.3 H (80.0-100.0) fL MCH 36.1 H (25.0-35.0) pg Plt Count 51 L D (150-450) k/uL Lymphocytes # 0.8 L (1.0-4.8) k/uL Macrocytosis Marked A Sodium 136 L (137-145) mmol/L Chloride 108 H (98-107) mmol/L Carbon Dioxide 19 L (22-30) mmol/L Calcium 7.8 L (8.4-10.2) mg/dL Total Bilirubin 4.3 H (0.2-1.3) mg/dL AST 84 H (14-36) U/L Alkaline Phosphatase 331 H (38-126) U/L Total Protein 5.6 L (6.3-8.2) g/dL Albumin 2.5 L (3.5-5.0) g/dL
--- NOTE | 2019-06-18 16:20 | CT ---
EXAMINATION TYPE: CT chest abdomen wo/w con DATE OF EXAM: 06/18/2019 COMPARISON: HIDA scan 06/18/2019 HISTORY: 48-year-old female with pleural effusion, elevated bilirubin, RUQ pain TECHNIQUE: Contiguous axial scanning of the chest and abdomen before and after administration of 100 ml Isovue 300 IV contrast. Delayed images through the kidneys and coronal/sagittal reconstructions p erformed. CT DLP: 914.8 mGycm Automated exposure control for dose reduction was used. FINDINGS: Heart normal size without pericardial effusion. Aorta normal caliber with conventional arch vessel branching anatomy. A prominent but not enlarged 9 mm precarinal lymph node. Otherwise, no thoracic lymphadenopathy by CT size criteria. Small effusions are present. Background of moderate centrilobular emphysema. Patchy peribronchial vas cular and peripheral groundglass especially in the mid lungs. Respiratory motion artifacts. ABDOMEN: Tiny hiatal hernia. Liver is enlarged at 22.0 cm with low-attenuation. Geographic area of even lower attenuation along th e mid aspect of the liver. Portal venous system is patent. No biliary ductal dilatation. The bladder is collapsed. There may be mild frontal gallbladder wall thickening. Adrenal glands, spleen, and pancreas appear within normal limits. There is patchy heterogeneous hypoenhancement of the right kidney and to a lesser extent within the l eft kidney but with symmetric excretion of contrast. Trace ascites fluid along the right flank. No free air. No dilated small bowel. No significant stool burden. No pericolonic inflammatory change. No mesenteric or retroperitoneal lymphadenopathy. Mild bilateral flank edema and additional dependent edema in the subcutaneous adipose. BONES: Scattered mild degenerative disc disease lumbar spine and more moderate degenerative disc disease tho racic spine. IMPRESSION: 1. PATCHY HYPOENHANCEMENT OF THE RIGHT GREATER THAN LEFT KIDNEYS. CORRELATE FOR BILATERAL PYELONEPHRI TIS. 2. HEPATOMEGALY (22.0 CM) WITH LOW ATTENUATION. THE DECREASED DENSITY COULD REFLECT UNDERLYING HEPATI C STEATOSIS OR EDEMA FROM HEPATITIS. CLINICALLY CORRELATE. NO BILIARY DUCTAL DILATATION. 3. TRACE ASCITES ALONG THE RIGHT FLANK LIKELY REACTIVE. 4. COPD WITH MODERATE EMPHYSEMA. SMALL BILATERAL PLEURAL EFFUSIONS. 5. PATCHY GROUNDGLASS IN THE MIDLUNGS. DIFFERENTIAL CONSIDERATIONS INCLUDE INTERSTITIAL PNEUMONITIS S [employer], HYPERSENSITIVITY PNEUMONITIS, EARLY INTERSTITIAL EDEMA, AND PNEUMONIA INCLUDING ATYPICAL INFECTIONS. CLINICALLY CORRELATE.
--- NOTE | 2019-06-18 17:20 | MR ---
MRCP HISTORY: Abdomen pain, elevated bilirubin Multiplanar multisequence imaging obtained through the biliary system, three-dimensional reconstructi ons performed. Correlation to nuclear medicine hepatobiliary scan 06/18/2019, 06/17/2019, CT 06/18/2019, ultrasound 06/17/2019, CT from outside institution 12/30/2015 There is been interval development of bilateral pleural effusions. Striated signal changes within the kidneys consistent with possible pilonidal nephritis as noted on most recent CT. The liver is enlarg ed. Signal drop on out of phase imaging is consistent with hepatic steatosis with more focal fatty de position suspected in the left lobe, periportal location, no evident mass.. There is a small hiatal h ernia. Motion is present on the exam which may limit sensitivity. There is contracted gallbladder present. N o definite luminal abnormality within the gallbladder or biliary system to suggest choledocholithiasi s. The adrenal glands and pancreas are within normal limits. Spleen is not enlarged. IMPRESSION: Correlate for bilateral pyelonephritis. Pleural effusions. Hepatic steatosis. Limitations to the exam as described. Gallbladder appears somew hat contracted.
[2019-06-18] MEDS: NICOTINE 14MG/24HR PATCH TRANSDERM SCH (20:00)
--- NOTE | 2019-06-18 22:38 | P.PN ---
Subjective Progress Note Date: 06/18/19 Principal diagnosis: Abdominal pain, elevated bilirubin, elevated liver enzymes The patient is seen lying in bed. Abdominal pain so present but somewhat improved. No nausea vomiting. Objective - Vital Signs Vital signs: Vital Signs Temp 98.9 F 06/18/19 15:00 Pulse 69 06/18/19 15:00 Resp 16 06/18/19 15:00 BP 137/82 06/18/19 15:00 Pulse Ox 96 06/18/19 15:00 Intake & Output 06/18/19 06/18/19 06/19/19 06:59 18:59 06:59 Intake Total 800 Balance 800 Intake: IV 800 0.9% NaCl with KCl 20 Meq 800 /l 1,000 ml @ 100 mls/hr IV .Q10H HERNAN Rx#: [id number] Other: Voiding Method Toilet Toilet # Voids 1 - Exam On physical examination, patient appears comfortable in no apparent distress. HEAD: Normocephalic, atraumatic. EYES: No scleral icterus. No conjunctival injection. MOUTH: No lesions, tongue midline. NECK: Trachea midline, no gross abnormalities. CHEST: Clear to auscultation with no wheezing or rhonchi appreciated. HEART: Regular rate and rhythm. ABDOMEN: Soft, mildly tender to palpation. Bowel sounds are positive. No organomegaly. No guarding or rigidity. EXTREMITIES: No pedal edema. SKIN: No rashes, no jaundice. NEUROLOGIC: Alert and oriented x3. No focal deficits. - Labs CBC & Chem 7: 06/18/19 12:49 06/18/19 12:49 Labs: Abnormal Lab Results - Last 24 Hours (Table) 06/18/19 06/18/19 Range/Units 12:49 12:49 RBC 3.65 L (3.80-5.40) m/uL MCV 112.3 H (80.0-100.0) fL MCH 36.1 H (25.0-35.0) pg Plt Count 51 L D (150-450) k/uL Lymphocytes # 0.8 L (1.0-4.8) k/uL Macrocytosis Marked A Sodium 136 L (137-145) mmol/L Chloride 108 H (98-107) mmol/L Carbon Dioxide 19 L (22-30) mmol/L Calcium 7.8 L (8.4-10.2) mg/dL Total Bilirubin 4.3 H (0.2-1.3) mg/dL AST 84 H (14-36) U/L Alkaline Phosphatase 331 H (38-126) U/L Total Protein 5.6 L (6.3-8.2) g/dL Albumin 2.5 L (3.5-5.0) g/dL Assessment and Plan (1) Elevated liver enzymes Narrative/Plan: 48-year-old female presented to the hospital as a transfer with complaints of abdominal pain and elevated liver enzymes. Liver enzymes are elevated in both a cholestatic and hepatocellular pattern of unknown etiology. Patient reports alcohol consumption of only to 3 times per week, however on further questioning does report a prior history of significant alcohol use but is vague about the amount and duration she was consuming at that time. Given findings of steatosis on imaging, splenomegaly, thrombocytopenia, AST: ALTs in a 2:1 at this time suspicion is for alcoholic liver disease and possible cirrhosis. Plan is for further evaluation with MRCP to rule out hepatobiliary pathology of the elevated liver enzymes. Differential also includes drug-induced liver injury, with acute viral hepatitis testing ruled out with a negative lab workup. Liver enzymes remain stable. HIDA scan and MRCP performed with no evidence of biliary obstruction or cholecystitis noted. Current Visit: Yes Status: Acute Code(s): R74.8 - ABNORMAL LEVELS OF OTHER SERUM ENZYMES SNOMED Code(s): 253524322 (2) Abdominal pain Current Visit: Yes Status: Acute Code(s): R10.9 - UNSPECIFIED ABDOMINAL PAIN SNOMED Code(s): 98221779 (3) Hyperbilirubinemia Current Visit: Yes Status: Acute Code(s): E80.6 - OTHER DISORDERS OF BILIRUBIN METABOLISM SNOMED Code(s): 58884213 Plan: Supportive care Okay for diet as tolerated Continue to follow CBC, CMP and INR HIDA scan and MRCP reviewed Appreciate recommendations from surgical service No plans for ERCP at this time while evaluation is in process Case discussed with the patient, with continued alcohol abstinence encouraged Acute viral hepatitis panel negative Liver enzymes elevated further we'll consider full serology, otherwise okay for follow-up with primary care after discharge Thank you for allowing us to participate in the care of this patient we will continue to follow
--- NOTE | 2019-06-19 00:24 | P.PN ---
Progress Note - Text Progress Note Date: 06/18/19 Chief Complaint: Upper abdominal pain History of presenting complaint: This is a pleasant 48-year-old patient of Dr. Mota. Patient initially presented to [facility] where she is having abdominal pain in the upper abdomen for about a week. Sharp in nature it is worse with food. Goes around and goes the back. No fever no chills. She initially presented [facility] 2 days ago and was was sent home. She presented to them with worsening pain. And at some elevation in LFTs was sent down here. Patient had some relief with Tums. Has been up in the hallway here in the hospital. General surgery was consulted. No fever no chills. Today-abdominal pain is better. No nausea vomiting. Tired.. Review of systems: Was done for constitutional, cardiovascular, GI, pulmonary. relevant finding as above Active Medications Acetaminophen (Tylenol Tab) 650 mg PO Q6HR PRN PRN Reason: Mild Pain or Fever > 100.5 Alprazolam (Xanax) 0.25 mg PO Q6HR PRN PRN Reason: Anxiety Last Admin: 06/18/19 20:03 Dose: 0.25 mg Documented by: Famotidine (Pepcid) 20 mg PO BID HERNAN Last Admin: 06/18/19 20:04 Dose: 20 mg Documented by: Hydromorphone HCl (Dilaudid) 0.5 mg IVP Q3HR PRN PRN Reason: Moderate Pain Last Admin: 06/18/19 20:03 Dose: 0.5 mg Documented by: Cefepime HCl 2 gm/ Sodium (Chloride) 100 mls @ 200 mls/hr IVPB Q12HR [facility] Last Admin: 06/18/19 20:03 Dose: 200 mls/hr Documented by: Potassium Chloride/Sodium Chloride (Ns-Kcl 20 Meq/L Iv Solution) 1,000 mls @ 100 mls/hr IV .Q10H [facility] Last Admin: 06/18/19 16:16 Dose: 100 mls/hr Documented by: Ibuprofen (Motrin) 400 mg PO Q6HR PRN PRN Reason: Mild Pain or Fever > 100.5 Ketorolac Tromethamine (Toradol) 30 mg IVP Q6HR PRN PRN Reason: Moderate Pain Stop: 06/20/19 18:25 Lidocaine HCl (.Xylocaine 1% Inj (10mg/Ml) For Iv Start) 0.1 ml INTRADERMA PER PROTOCOL PRN PRN Reason: IV Start Morphine Sulfate (Morphine Sulfate (Inj)) 4 mg IV Q4HR PRN PRN Reason: Severe Pain Naloxone HCl (Narcan) 0.2 mg IV Q2M PRN PRN Reason: Opioid Reversal Nicotine (Habitrol 14mg/24hr Patch) 1 patch TRANSDERM DAILY@2100 HERNAN Last Admin: 06/18/19 20:00 Dose: Not Given Documented by: Tramadol HCl (Ultram) 50 mg PO Q6H PRN PRN Reason: Moderate Pain Physical examination: VITAL SIGNS: 97.1, 78, 16, 136.85, 98% room air GENERAL: Laying in bed, but tired. EYES: Pupils equal. Conjunctiva normal. HEENT: External appearance of nose and ears normal, oral cavity grossly normal. NECK: JVD not raised; masses not palpable. HEART: First and second heart sounds are normal; no edema. LUNGS: Respiratory rate normal; decreased breath sounds. ABDOMEN: Soft, upper abdominal tenderness both in the epigastric and the right upper quadrant area,, liver spleen not palpable, no masses palpable. PSYCH: Alert and oriented x3; mood and affect normal. INVESTIGATIONS, reviewed in the clinical context: Potassium 3.8 creatinine 0.66 bilirubin 4.3 AST 84 ALT 45 alk phos 331 white count 9 Abdominal ultrasound-liver grossly enlarged, gallbladder within normal limits Results noted 40 MRCP, chest abdomen computed tomography scan, HIDA scan. Previous testing White count 10.3 hemoglobin 14.2 potassium 2.6. 21 crit 1.06 total bilirubin 4.3 AST 169 ALT 52 alkaline phosphatase 338 Assessment: -This is a patient to presented with acute upper abdominal pain. There was no fever no chills. No white count. Hepatomegaly was noted. HIDA scan and other findings are not suggestive of acute cholecystitis. Patient did have obstructive pattern on presentation that is biochemically improving. Computed tomography scan of the abdomen and pelvis not suggestive of any malignancy. Patient has no urinary symptoms. It's possible that patient acute alcoholic hepatitis as patient does drink alcohol or some other form of acute hepatitis but with the obstructive pattern that could be also drug-induced which is clinically improving. -Chronic nicotine dependence patient cigarette smoker -Hyperbilirubinemia -Severe hypokalemia, corrected -Clinical dehydration with elevated BUN/creatinine improving with IV hydration Plan: Washed the patient will 24 hours. Start back on a liquid diet. Advance as tolerated. We'll see how the patient does tomorrow. Follow with surgery and GI.
[2019-06-19] MEDS: 0.9% NACL WITH KCL 20 MEQ/L 1,000 ML IV SCH ×2 (01:47→13:20)
[2019-06-19] MEDS: HYDROmorphone 0.5 MG/0.5 ML SYRINGE IVP PRN ×2 (01:47→05:21)
[2019-06-19 01:49] VITALS: RESP 18
[2019-06-19 05:57] VITALS: BP 126/78; PULSE 73; TEMP 97.5
[2019-06-19] MEDS: CEFEPIME 2 GM in SODIUM CHLORIDE 0.9% 100 ML IVPB SCH (07:40)
[2019-06-19] MEDS: FAMOTIDINE 20 MG TAB PO SCH (07:41)
--- NOTE | 2019-06-20 00:31 | P.DS ---
Providers Date of admission: 06/17/19 15:30 Expected date of discharge: 06/19/19 Attending physician: Bernabe Diallo Consults: 06/16/19 13:48 Consult Physician Routine Consulting Provider: Flaco Sarmiento Consult Reason/Comments: Abdominal pain, possible gallbladder Do you want consulting provider notified?: Yes 06/17/19 10:01 Consult Physician Routine Consulting Provider: Kali Peters Consult Reason/Comments: elevated bilirubin Do you want consulting provider notified?: Yes Primary care physician: Sean Mota [facility] Course: Chief Complaint: Upper abdominal pain History of presenting complaint: This is a pleasant 48-year-old patient of Dr. Mota. Patient initially presented to [facility] where she is having abdominal pain in the upper abdomen for about a week. Sharp in nature it is worse with food. Goes around and goes the back. No fever no chills. She initially presented [facility] 2 days ago and was was sent home. She presented to them with worsening pain. And at some elevation in LFTs was sent down here. Patient had some relief with Tums. Has been up in the hallway here in the hospital. General surgery was consulted. No fever no chills.patient went through extensive testing.abdominal ultrasound showed hepatocellular disease. HIDA scan was nonspecific. MRCP was nonspecific again. Also the chest abdomen and CT. Patient on closer questioning does drink about 4 yaegers every other day. Patient's presentation was not felt to be from acute alcoholic hepatitis. He does have hepatomegaly. No evidence of gallstones. Patient was counseled about the same. Patient seen by Dr. Vargas from GI and Dr. Sarmiento from general surgery. Cleared to discharge. consultation: Dr. Vargas from GI Dr. Sarmiento from general surgery Physical examination: VITAL SIGNS: consent 0.5, 73, 18, 126/78, 94% room air GENERAL: sitting up, comfortable EYES: Pupils equal. Conjunctiva normal. HEENT: External appearance of nose and ears normal, oral cavity grossly normal. NECK: JVD not raised; masses not palpable. HEART: First and second heart sounds are normal; no edema. LUNGS: Respiratory rate normal; decreased breath sounds. ABDOMEN: Soft, upper abdominal tenderness both in the epigastric and the right upper quadrant area,, palpable liver. PSYCH: Alert and oriented x3; mood and affect normal. INVESTIGATIONS, reviewed in the clinical context: Potassium 3.8 creatinine 0.66 bilirubin 4.3 AST 84 ALT 45 alk phos 331 white count 9 Abdominal ultrasound-liver grossly enlarged, gallbladder within normal limits Results noted 40 MRCP, chest abdomen computed tomography scan, HIDA scan. Previous testing White count 10.3 hemoglobin 14.2 potassium 2.6. 21 crit 1.06 total bilirubin 4.3 AST 169 ALT 52 alkaline phosphatase 338 hepatitis screen was negative discharge diagnosis: -acute alcoholic hepatitis -Hepatomegaly from alcoholic hepatitis. -Chronic nicotine dependence patient cigarette smoker -Hyperbilirubinemia -Severe hypokalemia, corrected -Clinical dehydration with elevated BUN/creatinine improving with IV hydration disposition: Home Patient Condition at Discharge: Stable Plan - Discharge Summary New Discharge Prescriptions: New Nicotine 14Mg/24Hr Patch [Habitrol] 1 patch TRANSDERM DAILY@2100 #30 patch Famotidine [Pepcid] 20 mg PO BID #60 tab Continue Naproxen [Naprosyn] 500 mg PO Q12HR PRN PRN Reason: Pain Discontinued Ondansetron Odt [Zofran Odt] 4 mg PO TID PRN PRN Reason: Nausea Nitrofurantoin Monohyd/M-Cryst [Macrobid] 100 mg PO Q12HR Discharge Medication List Naproxen [Naprosyn] 500 mg PO Q12HR PRN 06/15/19 [History] Famotidine [Pepcid] 20 mg PO BID #60 tab 06/19/19 [Rx] Nicotine 14Mg/24Hr Patch [Habitrol] 1 patch TRANSDERM DAILY@2100 #30 patch 06/19/19 [Rx] Follow up Appointment(s)/Referral(s): Kali Peters MD [STAFF PHYSICIAN] - 10 Days Sean Mota MD [Primary Care Provider] - 06/20/19 10:30 am Patient Instructions/Handouts: Abuse of Alcohol (DC), Abdominal Pain (ED) Discharge Disposition: HOME SELF-CARE
== END 2019-06-19 13:32 | disposition home or self-care (01) ==
LOC: EC 14:42 → 4MS4W 18:47 → OBSVTOIN 06-17 15:30 → INTOOBSV 06-17 15:30 → UNDODISIN 06-19 13:32
PROVIDERS: ADMIT Hospitalist; ATTEND Hospitalist
DX: K70.10 Alcoholic hepatitis without ascites (principal); N39.0 Urinary tract infection, site not specified; D69.6 Thrombocytopenia, unspecified; R16.1 Splenomegaly, not elsewhere classified; E86.0 Dehydration; E87.6 Hypokalemia; F17.210 Nicotine dependence, cigarettes, uncomplicated; F10.20 Alcohol dependence, uncomplicated; Z90.49 Acquired absence of other specified parts of digestive tract; Z88.0 Allergy status to penicillin; Z91.09 Other allergy status, other than to drugs and biological substances; Z80.41 Family history of malignant neoplasm of ovary; Z82.5 Family history of asthma and other chronic lower respiratory diseases; Z83.3 Family history of diabetes mellitus; Z82.49 Family history of ischemic heart disease and other diseases of the circulatory system; Z98.51 Tubal ligation status; Z84.89 Family history of other specified conditions; Z79.899 Other long term (current) drug therapy; Z88.8 Allergy status to other drugs, medicaments and biological substances
CPT/HCPCS: 96376 ×5; 96361 ×4; 96365; 96366 ×4; 96375 ×2; 99285; 36415; 93005; 80053 ×4; 80074; 82150; 82248; 82553; 83690; 83735; 84132 ×2; 85025 ×3; 85610; 81001; 71046; 74018; 76705; 71270; 74170; 74181; 78226; 78227; G0378 ×5; A9537 ×2; J2060; J2805; J0692 ×4; J1885; C9113; J1170 ×5; Q9967; 96374

== ENCOUNTER → 2019-07-12 | Day surgery (SDC) | payer OTHER ==
[2019-07-10 09:01] VITALS: BMI 24.7
[~2019-07-12] MED LIST: DEXAMETHASONE SOD PHOSPHATE 10 MG/ML 1 ML VIAL IV ONE; GLYCOPYRROLATE 0.2 MG/ML 2 ML VIAL ONE; HEPARIN SODIUM,PORCINE 5,000 UNIT/ML 1 ML VIAL SQ ONE; HYDROcodone/APAP 5-325MG 1 EACH TAB PO ONE; KETOROLAC 30 MG/ML 1 ML VIAL ONE; LACTATED RINGERS 1,000 ML IV ONE; LACTATED RINGERS 1,000 ML IV SCH; LIDOCAINE 1% 20 ML VIAL (10MG/ML) FOR IV START INTRADERMA PRN; LIDOCAINE 1% INJ 10MG/ML (20 ML MDV) ONE; LIDOCAINE 1%-EPI 1:100,000 20 ML VIAL SQ ONE; MIDAZOLAM 2 MG/2 ML VIAL IV PRN; MIDAZOLAM 2 MG/2 ML VIAL ONE; NEOSTIGMINE 1 MG/ML 10 ML VIAL ONE; ONDANSETRON 4 MG/2 ML VIAL IVP ONE; PROPOFOL 10 MG/ML 20 ML VIAL IV ONE; ROCURONIUM BROMIDE 10 MG/ML 10 ML VIAL IV ONE; SCOPOLAMINE 1.5MG/72HR PATCH TRANSDERM ONE; SUCCINYLCHOLINE CHLORIDE 100 MG/5 ML SYR IV ONE; fentaNYL (PF) 50 MCG/ML 2 ML AMP IV ONE; fentaNYL (PF) 50 MCG/ML 2 ML AMP ONE
[2019-07-12 07:19] LABS: Mean Platelet Volume 7.6
[2019-07-12 07:36] LABS: Platelet Count 154 k/uL (150-450)
--- NOTE | 2019-07-12 07:54 | P.GSHP ---
History of Present Illness H&P Date: 07/12/19 Chief Complaint: Right upper quadrant pain This a 48-year-old female who's had complaints of right upper quadrant pain. Her recent HIDA scan shows abnormal ejection fraction consistent with chronic cholecystitis. Patient presents today for laparoscopic cholecystectomy Past Medical History Past Medical History: GERD/Reflux Additional Past Medical History / Comment(s): Current gallbladder issues. History of Any Multi-Drug Resistant Organisms: None Reported Past Surgical History: Appendectomy, Section, Orthopedic Surgery, Tubal Ligation, Uterine Ablation Additional Past Surgical History / Comment(s): Left knee surgery. Past Anesthesia/Blood Transfusion Reactions: No Reported Reaction Past Psychological History: No Psychological Hx Reported Smoking Status: Current some day smoker Past Alcohol Use History: Rare Additional Past Alcohol Use History / Comment(s): Has been smoking for 20 yrs, 4-6 cigarettes per day. Past Drug Use History: None Reported - Past Family History Mother Family Medical History: Cancer, COPD, Diabetes Mellitus Additional Family Medical History / Comment(s): DMII, ovarian cancer. Father Family Medical History: Deep Vein Thrombosis (DVT) Medications and Allergies Home Medications Medication Instructions Recorded Confirmed Type Naproxen [Naprosyn] 500 mg PO Q12HR PRN 06/15/19 07/10/19 History Famotidine [Pepcid] 20 mg PO BID #60 tab 06/19/19 07/12/19 Rx Allergies Allergy/AdvReac Type Severity Reaction Status Date / Time Penicillins Allergy Unknown Verified 07/12/19 06:40 Childhood varenicline tartrate AdvReac NIGHTMARES Verified 07/12/19 06:40 [From [facility]] Surgical - Exam Vital Signs Temp Pulse Resp BP Pulse Ox 98.0 F 78 18 104/67 98 07/12/19 06:54 07/12/19 06:54 07/12/19 06:54 07/12/19 06:54 07/12/19 06:54 - General well developed, well nourished - Eyes PERRL - ENT normal pinna - Neck no masses - Respiratory normal expansion - Cardiovascular Rhythm: regular - Abdomen Abdomen: soft, non tender Results - Labs 07/12/19 07:10 Assessment and Plan Assessment: Right quadrant pain Chronic cholecystitis We'll perform laparoscopic cholecystectomy
[2019-07-12 08:41] VITALS: TEMP 97.5
[2019-07-12] MEDS: HYDROmorphone 0.5 MG/0.5 ML SYRINGE IVP PRN ×4 (08:41→09:09)
--- NOTE | 2019-07-12 08:54 | P.OP ---
Date of Procedure: 07/12/19 Preoperative Diagnosis: Cholecystitis Postoperative Diagnosis: Cholecystitis Procedure(s) Performed: Laparoscopic cholecystectomy Anesthesia: ORQUIDEA Surgeon: Flaco Sarmiento Estimated Blood Loss (ml): 5 Pathology: other (Gallbladder) Condition: stable Disposition: PACU Description of Procedure: The patient was placed on the operating table. The patient received a general endotracheal tube anesthesia. The patients abdomen was prepped and draped in the usual sterile fashion. Through an infraumbilical stab incision, the fascia of the anterior abdominal wall was grasped with a pair of Kochers and then the Veress needle was placed in the peritoneal cavity. Position of the Veress needle was confirmed with positive drop test. The abdomen was then insufflated. After adequate insufflation, the 10 mm trocar was placed in the peritoneal cavity. Following this the laparoscope was placed in the peritoneal cavity. The patient was placed in the head-up, right side up position and then a 5 mm trocar was placed in the right lateral and right subcostal position under direct visualization. A 8 mm trocar was placed in the epigastric position. The gallbladder was grasped in the fundus and infundibulum. Traction on the gallbladder was placed in the lateral and the cephalad positions. The triangle of Calot was visualized.. The cystic duct was bluntly dissected until the union of the cystic duct and common bile duct was seen. A critical view of safety was achieved. The cystic duct was then divided and sealed with the Harmonic scissors. A PDS Endoloop was then placed throughout the cystic duct stump. The cystic artery divided and sealed with the Harmonic scissors. The gallbladder was then removed from the liver bed using Harmonic scissors. The gallbladder was then extracted through the epigastric port site. Operative field was checked for any bleeding spots and Harmonic scissors was used to coagulate the liver bed. The abdomen was irrigated. The trocars were removed. The skin was closed using interrupted 3-0 Vicryl suture. Dermabond dressing were applied. The patient tolerated the procedure well.
[2019-07-12 09:35] VITALS: RESP 17
[2019-07-12 09:55] VITALS: BP 128/83; PULSE 51
== END | disposition home or self-care (01) ==
LOC: OR 06:30
PROVIDERS: ATTEND Surgery
DX: K81.1 Chronic cholecystitis (principal); K21.9 Gastro-esophageal reflux disease without esophagitis; F17.210 Nicotine dependence, cigarettes, uncomplicated; Z88.0 Allergy status to penicillin; Z79.1 Long term (current) use of non-steroidal anti-inflammatories (NSAID); Z79.899 Other long term (current) drug therapy; Z90.49 Acquired absence of other specified parts of digestive tract; Z98.51 Tubal ligation status; Z98.890 Other specified postprocedural states; Z80.41 Family history of malignant neoplasm of ovary; Z83.2 Family history of diseases of the blood and blood-forming organs and certain disorders involving the immune mechanism; Z88.8 Allergy status to other drugs, medicaments and biological substances
CPT/HCPCS: 81025; 88304; 85049; 47562; J2250; J1100; J2710; J0690; J2405; J2001; J3010; J1885; J0330; J2704; J1170